=== PATIENT | female | born 1950 | race Caucasian/White ===

== ENCOUNTER 2017-10-16 10:55 | Outpatient (CLI) | payer OTHER, MEDICAID | END 2017-10-16 19:04 | disposition home or self-care (01) | LOC: SUS 10:55 | PROVIDERS: ATTEND Internal Medicine | DX: I82.409 Acute embolism and thrombosis of unspecified deep veins of unspecified lower extremity (principal) | CPT/HCPCS: 93970 ==

== ENCOUNTER 2019-05-13 14:11 | Outpatient (CLI) | payer OTHER, MEDICAID ==
[2019-05-13 15:05] LABS: BILIRUBIN,URINE NEGATIVE (NEGATIVE); BLOOD, URINE 3+ (NEGATIVE); COLOR,URINE YELLOW (YELLOW); GLUCOSE,URINE TRACE (NEGATIVE); KETONES,URINE NEGATIVE (NEGATIVE); NITRITE, URINE NEGATIVE (NEGATIVE); PH,URINE 5.5 (5.0-8.0); PROTEIN URINE TRACE (NEGATIVE); UROBILINOGEN,URINE 0.2 (0.2-1.0)
[2019-05-13 15:16] LABS: CLARITY/URINE HAZY (CLEAR); LEUKOCYTE ESTERASE ,URINE TRACE (NEGATIVE)
[2019-05-13 15:18] LABS: BACTERIA,URINE FEW /HPF (None Seen); MUCUS,URINE None Seen /LPF (None Seen); RBC,URINE 50-80 /HPF (0-3)
== END 2019-05-14 20:20 | disposition home or self-care (01) ==
LOC: SLB 14:11
PROVIDERS: ATTEND Internal Medicine
DX: N39.0 Urinary tract infection, site not specified (principal)
CPT/HCPCS: 81000-TC; 87086

== ENCOUNTER 2019-05-20 10:13 | Outpatient (CLI) | payer OTHER, MEDICAID | END 2019-05-20 18:31 | disposition home or self-care (01) | LOC: SCT 10:13 | PROVIDERS: ATTEND Internal Medicine | DX: N28.1 Cyst of kidney, acquired (principal); K43.9 Ventral hernia without obstruction or gangrene; K42.9 Umbilical hernia without obstruction or gangrene; K44.9 Diaphragmatic hernia without obstruction or gangrene ==

== ENCOUNTER 2019-07-06 10:29 | Outpatient (CLI) | payer OTHER, MEDICAID | END 2019-07-07 13:46 | disposition home or self-care (01) | LOC: SCA 10:29 | DX: H25.13 Age-related nuclear cataract, bilateral (principal) | CPT/HCPCS: 93005 ==

== ENCOUNTER 2020-03-26 10:20 | Outpatient (CLI) | payer OTHER, MEDICAID ==
[2020-03-26 10:50] LABS: BILIRUBIN,URINE NEGATIVE (NEGATIVE); BLOOD, URINE NEGATIVE (NEGATIVE); COLOR,URINE YELLOW (YELLOW); GLUCOSE,URINE TRACE (NEGATIVE); KETONES,URINE NEGATIVE (NEGATIVE); LEUKOCYTE ESTERASE ,URINE NEGATIVE (NEGATIVE); NITRITE, URINE NEGATIVE (NEGATIVE); PH,URINE 7.5 (5.0-8.0); PROTEIN URINE NEGATIVE (NEGATIVE); UROBILINOGEN,URINE 0.2 (0.2-1.0)
[2020-03-26 12:08] LABS: CLARITY/URINE SLIGHTLY HAZY (CLEAR)
== END 2020-03-26 20:47 | disposition home or self-care (01) ==
LOC: SMA 10:20
PROVIDERS: ATTEND Internal Medicine
DX: Z12.31 Encounter for screening mammogram for malignant neoplasm of breast (principal)
CPT/HCPCS: 77067; 81003; 87086

== ENCOUNTER 2020-03-27 10:41 | Outpatient (CLI) | payer OTHER, MEDICAID | END 2020-03-27 21:06 | disposition home or self-care (01) | LOC: SMI 10:41 | PROVIDERS: ATTEND Internal Medicine | DX: M47.812 Spondylosis without myelopathy or radiculopathy, cervical region (principal); M46.02 Spinal enthesopathy, cervical region | CPT/HCPCS: 72141 ==